=== PATIENT | female | born 1980 | race Caucasian/White ===

== ENCOUNTER → 2023-01-10 09:20 | Outpatient (BNVA) | payer MEDICAID, SELFPAY | PROVIDERS: Visit Provider Physician Assistant ==

== ENCOUNTER 2023-01-18 09:24 | Outpatient (REF) | payer MEDICAID, SELFPAY ==
[2023-01-20 12:16] LABS: H Pylori Breath Test Negative (Negative)
== END 2023-01-18 09:25 | disposition home or self-care (01) ==
LOC: HO.LNP 09:24
PROVIDERS: Visit Provider Physician Assistant Surgical
DX: E66.01 Morbid (severe) obesity due to excess calories (principal); Z68.41 Body mass index [BMI] 40.0-44.9, adult; Z11.0 Encounter for screening for intestinal infectious diseases
CPT/HCPCS: 83013; 99202; 99211

== ENCOUNTER 2023-01-26 09:07 | Outpatient (REF) | payer MEDICAID, SELFPAY ==
--- NOTE | ~2023-01-26 | XR_ITS ---
EXAMINATION: XR CHEST CLINICAL INFORMATION: Bariatric service evaluation, E66.01 COMPARISON: None available. TECHNIQUE: 2 views of the chest were obtained. FINDINGS: Lungs clear. Vascularity normal. No airspace consolidation or groundglass opacity or effusion. Heart size normal. The hilar and mediastinal contours and visualized bony structures are unremarkable. XR/XR chest 2V IMPRESSION: Unremarkable examination.
--- NOTE | 2023-01-26 09:12 | ECG_ITS ---
Test Reason : E66.01 Blood Pressure : / mmHG Vent. Rate : 079 BPM Atrial Rate : 079 BPM P-R Int : 140 ms QRS Dur : 084 ms QT Int : 394 ms P-R-T Axes : 049 043 027 degrees QTc Int : 451 ms Normal sinus rhythm Normal ECG No previous ECGs available Referred By: Lynda Leong Electronically Signed By:ION SOTOMAYOR
[2023-01-26 09:23] LABS: MANUAL DIFF FLAG NO
[2023-01-26 09:58] LABS: Basophils Percent Auto 0.6 % (0-2); Eosinophils Absolute Auto 0.1 X10*3/uL (0.0-0.4); Eosinophils Percent Auto 1.8 % (0-4); Hematocrit 41.4 % (37.0-47.0); Hemoglobin 13.6 g/dl (12.0-16.0); Imm Gran Abs Auto 0.01 X10*3/uL (0.00-0.03); Imm Gran Pct Auto 0.1 % (0.0-0.4); Lymphocytes Absolute Auto 2.4 X10*3/uL (1.2-4.9); Lymphocytes Percent Auto 35.3 % (20-40); Mean Corpuscular HGB Conc 32.9 g/dl (31.0-35.0); Mean Corpuscular Hemoglobin 28.9 pg (27.0-33.0); Mean Corpuscular Volume 87.9 fL (80.0-98.0); Mean Platelet Volume 11.2 fL (9.4-12.3); Monocytes Absolute Auto 0.5 X10*3/uL (0.1-1.2); Monocytes Percent Auto 7.3 % (2-11); Neutrophils Absolute Auto 3.7 x10*3/uL (2.0-8.3); Neutrophils Percent Auto 54.9 % (45-73); Platelet Count 339 X10*3/uL (160-400); Red Blood Count 4.71 X10*6/uL (4.20-5.50); Red Cell Distribution Width 12.8 % (11.0-16.0); White Blood Count 6.8 X10*3/uL (4.8-10.8)
[2023-01-26 10:22] LABS: Estimated Average Glucose 97 mg/dL
[2023-01-26 10:49] LABS: Alanine Aminotransferase 25 U/L (0-31); Albumin Level 4.5 g/dL (3.5-5.0); Alkaline Phosphatase 83 U/L (39-117); Anion Gap 15 (12-20); Aspartate Amino Transferase 19 U/L (5-31); Bilirubin Total 0.6 mg/dL (0.0-1.0); Blood Urea Nitrogen 19 mg/dL (9-16); C Reactive Protein 0.93 mg/dL (< or = 0.50); Calcium 9.5 mg/dL (8.4-10.2); Carbon Dioxide 26 mmol/L (22-29); Chloride 102 mmol/L (96-108); Cholesterol 177 mg/dL; Estimated Glomerular Filt Rate > 60; Glucose Random 86 mg/dL (60-115); HDL Cholesterol 38 mg/dL; Iron 68 mcg/dL (30-160); LDL Cholesterol Calculated 121 mg/dl; Percent Iron Saturation 28 % (15-50); Potassium 4.3 mmol/L (3.3-5.1); Sodium 139 mmol/L (135-145); Total Iron Binding Capacity 243 mcg/dL (228-428); Total Protein 7.6 g/dL (6.5-8.0); Triglycerides 90 mg/dL; Unsaturated Iron Binding 175 ug/dL
[2023-01-26 11:22] LABS: Ferritin 168 ng/mL (10-250); Folate 14.3 ng/mL (> or = 4.0); Insulin 8 uU/mL (2-29); Vitamin B12 650 pg/mL (200-900); Vitamin D 25-OH Total 31.7 ng/mL (>30)
[2023-01-30 16:54] LABS: PTHI 20 pg/mL (16-77)
[2023-02-01 02:04] LABS: Zinc 107 mcg/dL (60-130)
[2023-02-02 10:19] LABS: Vitamin A 35 mcg/dL (38-98)
[2023-02-02 16:24] LABS: Vitamin B1 <6 nmol/L (8-30)
== END 2023-01-26 09:08 | disposition home or self-care (01) ==
LOC: HO.LAB 09:07
PROVIDERS: Visit Provider Physician Assistant Surgical
DX: E66.01 Morbid (severe) obesity due to excess calories (principal)
CPT/HCPCS: 36415; 71046; 80053; 80061; 82306; 82607; 82728; 82746; 83036; 83525; 83540; 83970; 84425; 84443; 84590; 84630; 85025; 86140; 93005

== ENCOUNTER → 2023-01-30 14:11 | Outpatient (BNVA) | payer OTHER, MEDICAID, SELFPAY | PROVIDERS: Visit Provider Counselor Mental Health ==

== ENCOUNTER → 2023-02-07 13:57 | Outpatient (BNVA) | payer OTHER, MEDICAID, SELFPAY | PROVIDERS: PCP Physician Assistant; Visit Provider Dietitian, Registered | DX: E66.01 Morbid (severe) obesity due to excess calories (principal); Z68.42 Body mass index [BMI] 45.0-49.9, adult; Z71.3 Dietary counseling and surveillance | CPT/HCPCS: 97802 ==

== ENCOUNTER → 2023-02-17 12:43 | Outpatient (BNVA) | payer OTHER, SELFPAY | PROVIDERS: PCP Physician Assistant; Visit Provider Physician Assistant Surgical ==

== ENCOUNTER → 2023-02-20 14:30 | Outpatient (BNVA) | payer OTHER, SELFPAY | PROVIDERS: PCP Physician Assistant; Visit Provider Counselor Mental Health ==

== ENCOUNTER → 2023-03-07 13:30 | Outpatient (BNVA) | payer OTHER, SELFPAY | PROVIDERS: PCP Physician Assistant; Visit Provider Surgery ==

== ENCOUNTER 2023-03-13 08:50 | Outpatient (REF) | payer OTHER, SELFPAY ==
--- NOTE | ~2023-03-13 | FL_ITS ---
EXAMINATION: XR FLUOROSCOPY UPPER GI WITH AIR CLINICAL INFORMATION: Obesity. COMPARISON: None available. TECHNIQUE: Upper GI was performed using thin and thick barium and effervescent granules. AP and ZABALA imaging was also performed. FINDINGS: Esophageal motility is normal. There is a small sliding-type hiatal hernia. There is gastroesophageal reflux. The stomach is normal-appearing. No fold thickening, mass, ulcer or stricture is seen. There is delayed emptying into the stomach into the duodenum. The duodenum is difficult to distend and slightly irregular in shape. Appearance is questionable for scarring/changes from old ulcer disease. Remainder of the visualized proximal small bowel is normal. FLUOROSCOPY TIME: 0.3 min. DOSE AREA PRODUCT: 3.914 Gy-cm2. TOTAL DOSE: 13.318 mGy. FLUOROSCOPIC IMAGES: 16 saved fluoroscopic images and 3 delayed 10-minute overhead images. FL/FL upper GI w air IMPRESSION: Small sliding-type hiatal hernia and mild gastroesophageal reflux. Normal-appearing stomach. Slight deformity and underdistention of the duodenal bulb questionable for changes from old ulcer disease/scarring.
--- NOTE | ~2023-03-13 | US_ITS ---
EXAMINATION: US COMPLETE ABDOMEN WITH LIVER ELASTOGRAPHY CLINICAL INFORMATION: Morbid obesity. COMPARISON: None available. TECHNIQUE: Real-time imaging of the abdominal viscera. Noninvasive ultrasound liver fibrosis assessment is performed using Charan ElastPQ point quantification shear wave elastography (2D-SWE) with a C5-2 MHz transducer. Multiple elastography samples are obtained. FINDINGS: PANCREAS: Limited. The visualized pancreatic head and body are normal in appearance. The remainder of the pancreas is obscured from visualization by the overlying bowel gas. ABDOMINAL AORTA: The proximal, middle, and distal aortic segments are normal in caliber. INFERIOR VENA CAVA: Visualized portions are normal. LIVER: Normal. The liver demonstrates normal size, contour and echogenicity. Adjacent to the ligamentum teres, a 2.7 x 1.5 x 1.7 cm hyperechoic, circumscribed mass is seen. This shows no associated color Doppler flow. No biliary duct dilatation. The right lobe measures 13.9 cm in length. The left lobe measures 8.6 cm in length. Portal flow is towards the liver (hepatopetal). Shear wave liver elastography median stiffness is 1.55 m/s (reference: normal median stiffness is 1.3 m/s or less). IQR/median stiffness to assess sampling precision is 0.10 (reference: good quality data set is IQR/median stiffness of 0.15 or less). GALLBLADDER: Normal. The gallbladder is physiologically distended without evidence of stones, sludge, polyps, wall thickening or pericholecystic fluid. COMMON BILE DUCT: Normal in caliber measuring 0.2 cm in diameter. RIGHT KIDNEY: Normal. No hydronephrosis. No renal calculi or focal parenchymal lesions. The kidney measures 9.4 cm in maximum dimension. LEFT KIDNEY: Normal. No hydronephrosis. No renal calculi or focal parenchymal lesions. The kidney measures 10.3 cm in maximum dimension. SPLEEN: Normal. The spleen measures 10.7 cm in maximum dimension. FREE FLUID: None. US/US abdomen comp w elastography IMPRESSION: 1. A 2.7 cm in maximal diameter hyperechoic, circumscribed hepatic mass is seen, situated adjacent to the ligamentum teres. This has ultrasound features characteristic for a benign hemangioma. If of continued clinical concern (i.e., history of hepatocellular disease or known malignancy), this can be further evaluated with dynamic CT or MRI. 2. Liver elastography: In the absence of other known clinical signs, measurements rule out compensated advanced chronic liver disease. If there are known clinical signs, further testing may be needed for confirmation. REFERENCE: Society of Radiologists in Ultrasound Liver Stiffness Thresholds (2020): LIVER STIFFNESS THRESHOLDS: *Liver Stiffness equal or less than 1.3 m/s: High probability of being normal. *Liver Stiffness less than 1.7 m/s: In the absence of other known clinical signs, rules out compensated advanced chronic liver disease. *Liver Stiffness 1.7-2.1 m/s: Suggestive of compensated advanced chronic liver disease but need further test for confirmation. *Liver Stiffness over 2.1 m/s: Rules in compensated advanced chronic liver disease. *Liver Stiffness over 2.4 m/s: Suggestive of clinically significant portal hypertension. QUALITY OF DATA SET: *IQR/Median value equal or less than 0.15 implies a quality data set. *IQR/Median value over 0.15 implies a poor quality data set. SIGNIFICANT CHANGE FROM PRIOR EXAM: Significant change if liver stiffness measurement is 10% or greater from prior exam. OTHER CONSIDERATIONS: The stage of liver fibrosis may be overestimated in the setting of acute hepatitis, liver inflammation, elevated liver function tests, hepatic vascular congestion, obstructive cholestasis, non-fasting state, and infiltrative diseases such as amyloidosis and lymphoma. In some patients with NAFLD, the liver stiffness thresholds for compensated advanced chronic liver disease may be lower. In causes other than viral hepatitis and NAFLD, liver stiffness thresholds are not well established.
== END 2023-03-13 08:51 | disposition home or self-care (01) ==
LOC: HO.US 08:50
PROVIDERS: PCP Physician Assistant; Visit Provider Physician Assistant Surgical
DX: E66.01 Morbid (severe) obesity due to excess calories (principal)
CPT/HCPCS: 74246; 76705; 76981

== ENCOUNTER → 2023-03-21 09:00 | Outpatient (BNVA) | payer OTHER, SELFPAY | PROVIDERS: PCP Physician Assistant; Visit Provider Physician Assistant Surgical ==

== ENCOUNTER → 2023-03-24 09:00 | Outpatient (BNVA) | payer OTHER, SELFPAY | PROVIDERS: PCP Physician Assistant; Visit Provider Surgery ==

== ENCOUNTER → 2023-03-27 13:33 | Outpatient (BNVA) | payer OTHER, SELFPAY | PROVIDERS: PCP Physician Assistant; Visit Provider Surgery | DX: E66.01 Morbid (severe) obesity due to excess calories (principal); E66.9 Obesity, unspecified; F90.9 Attention-deficit hyperactivity disorder, unspecified type; E51.9 Thiamine deficiency, unspecified; E50.9 Vitamin A deficiency, unspecified; R16.0 Hepatomegaly, not elsewhere classified ==

== ENCOUNTER 2023-04-06 06:24 | Day surgery (SDC) | payer OTHER, SELFPAY ==
[2023-04-03 13:39] VITALS: BMI 31.0
--- NOTE | 2023-04-05 09:27 | HO.ANESPROP2 ---
HPI - Anesthesia Eval Consult details Narrative: 43yo F for Upper Endoscopy PMFSH Active Problems Active Problems: All Active Problems (Updated 04/03/23 @ 13:38 by Jody Diaz RN) ADHD (Acute) Morbid obesity (Acute) Obesity (Acute) Vitamin B1 deficiency (Acute) Vitamin A deficiency (Acute) Liver mass (Acute) Hiatal hernia (Acute) Abnormal upper gastrointestinal barium series (Acute) Past Medical History Medical History ADHD Family History Family History Mother Hypertension Sister Diabetes Father No problems noted. Daughter ADHD Son ADHD Surgical History Surgical History Hx of section Social History Social History Alcohol intake: never Patient Tobacco Use Status: Never used Tobacco Meds Allergies Allergy/AdvReac Type Severity Reaction Status Date / Time Penicillins [PENICILLINS] Allergy Unknown BRUISES Verified 04/12/23 13:05 Home Medications Medication Instructions Recorded Confirmed Last Taken Type lisdexamfetamine 40 mg capsule 40 mg PO DAILY 01/10/23 04/12/23 Unknown History (Wilson) Exam Exam Date and Time: April 05, 2023 09 Height,Weight and Vital Signs: Height 5 ft 8 in Weight 92.533 kg Pertinent Lab Results Pertinent Lab Results: Laboratory Tests 01/26/23 01/26/23 09:21 09:21 WBC 6.8 Hgb 13.6 Hct 41.4 Plt Count 339 Sodium 139 Potassium 4.3 Chloride 102 Carbon Dioxide 26 BUN 19 H Creatinine 0.85 Narrative Narrative: EKG 01/2023 Vent. Rate : 079 BPM ? ? Atrial Rate : 079 BPM ?? P-R Int : 140 ms? QRS Dur : 084 ms ? ? QT Int : 394 ms ? ? ? P-R-T Axes : 049 043 027 degrees ?? QTc Int : 451 ms ? Normal sinus rhythm Normal ECG No previous ECGs available Assessment and Plan Assessment Anesthesia Assessment: Chart Reviewed
--- NOTE | 2023-04-05 15:51 | MHC.SHP ---
Pre-Procedural Eval Section A Date of Service: 04/05/23 The patient is an INPATIENT: No The History & Physical has been completed within 30 days and I have reviewed it.: Yes Section B Chief Complaint: Morbid (severe) obesity due to excess calories Allergies: Allergies Allergy/AdvReac Type Severity Reaction Status Date / Time Penicillins [PENICILLINS] Allergy Unknown BRUISES Verified 03/27/23 13:38 Plan I have reviewed the history and physical and performed a pertinent physical examination on my patient. No changes have occurred unless specified. Time Spent With Patient Time: Total time managing care of this patient today ____ minutes.
[2023-04-06 06:45] VITALS: BP 125/66; PULSE 71; RESP 16; TEMP 36.3; O2SAT 99
[2023-04-06 06:46] LABS: UPreg QC Valid YES; Urine Pregnancy NEGATIVE (NEGATIVE)
[2023-04-06] MEDS: Lactated Ringers 1,000 ML 100 ML IVCONT (06:56)
--- NOTE | 2023-04-06 07:48 | P.CONAN_ITS ---
[facility] Active Problems Active Problems: All Active Problems (Updated 04/03/23 @ 13:38 by Jody Diaz RN) ADHD (Acute) Morbid obesity (Acute) Obesity (Acute) Vitamin B1 deficiency (Acute) Vitamin A deficiency (Acute) Liver mass (Acute) Hiatal hernia (Acute) Abnormal upper gastrointestinal barium series (Acute) Past Medical History Medical History ADHD Functional capacity: independent ambulation Family History Family History Mother Hypertension Sister Diabetes Father No problems noted. Daughter ADHD Son ADHD Surgical History Surgical History Hx of section History of Problems with Anesthesia: No Social History Social History Alcohol intake: never Patient Tobacco Use Status: Never used Tobacco Use of substances other than those prescribed or required for medical reasons: No Are you DNR?: No Advance Directives: No Advance Directives Information Provided: Yes Patient : No (has IUD) Meds Allergies Allergy/AdvReac Type Severity Reaction Status Date / Time Penicillins [PENICILLINS] Allergy Unknown BRUISES Verified 03/27/23 13:38 Active Medications: Current Medications Lactated Ringer's (Lr) 1,000 mls @ 100 mls/hr IVCONT .Q10H NOEMÍ Last Admin: 04/06/23 06:56 Dose: 100 mls/hr Home Medications Medication Instructions Recorded Confirmed Last Taken Type lisdexamfetamine 40 mg capsule 40 mg PO DAILY 01/10/23 04/03/23 Unknown History (Wilson) Exam Exam Date and Time: April 06, 2023 0748 Height,Weight and Vital Signs: Height 5 ft 8 in Weight 92.533 kg Last Vital Signs Temp 97.4 F 04/06/23 06:45 Pulse 71 04/06/23 06:45 Resp 16 04/06/23 06:45 BP 125/66 04/06/23 06:45 Pulse Ox 99 04/06/23 06:45 O2 Del Method Room Air 04/06/23 06:45 Pertinent Lab Results Pertinent Lab Results: Laboratory Tests 04/06/23 06:30 Urine Test NEGATIVE Airway Mallampati Class: III TM Dist: >3cm Neck ROM: Full Heart: RRR Lungs: CTA Assessment and Plan Assessment Anesthesia Assessment: Anesthesia Plan Discussed and Chart Reviewed Final Anesthetic Review History of Problems with Anesthesia: No NPO: Yes ASA Class: II Final Preanesthetic Review: Meds/Allgs Chart Reviewed, Consent Obtained/Reviewed and Anes Risks/Benef Reviewed Patient Risk: Low Procedure Risk: Low Anesthetic Plan Anesthetic Plan: MAC: Disposition: Standard PACU
[2023-04-06 07:58] VITALS: BP 91/37; PULSE 74; RESP 16; TEMP 36.4; O2SAT 97
--- NOTE | 2023-04-06 08:03 | W.PM.OPN ---
Operative Note Operative Note Date of Service: 04/06/23 Narrative: Preop diagnosis: [Delayed gastric emptying/GOO on upper GI, small hiatal hernia on UGI] Postop diagnosis: [Possible gastritis, duodenal bulb inflammation path pending; GERD, no obvious HH] Procedure: [EGD with biopsies] Surgeon: Tobin Prabhakar MD Assist: [] Anesthesia: [general] Estimated blood loss: [3cc] Specimen: [1) Duodenal bulb; 2) gastric antrum; 3) GE Jxn at 37cm] Intraoperative findings: [GERD with possible short-segment Brown's under 1 cm; mild antral inflammation; duodenal inflammation but no scarring or masses to explain upper GI findings] Indications: [The patient is a 43-year-old woman with a lifelong metz with obesity. She is interested in a laparoscopic sleeve gastrectomy for surgical weight loss. In her workup, she underwent an upper GI that demonstrated a small hiatal hernia and delayed gastric emptying due to possible scarring of the duodenal bulb. Given these findings, upper endoscopy was recommended and the inherent risks of aspiration, bleeding, perforation, no change in management, possible need for blood transfusion and missed pathology reviewed with the patient via foreign language teacher. She seemed understand her options and wanted to proceed.] Procedure: [The patient was placed in left lateral decubitus position. An appropriate time-out confirming the procedure and patient was performed. Following successful administration of deep MAC/general anesthesia by the Department of Anesthesia, the Olympus 190 gastroscope was inserted per os into the esophagus under direct vision. The scope is then advanced into the stomach were clear secretions were encountered and aspirated. The stomach was then inflated and the stomach zacarias including anterior, posterior, lesser curve fundus and antrum all exam. The scope was then advanced to the 2nd portion of the duodenum. Biopsy sites were assessed for hemostasis which was good. The duodenal bulb was widely patent with no evidence of obvious cicatrix or scarring. Second portion of the duodenum appeared grossly normal. Biopsies: Of the duodenal bulb, gastric antrum and lower esophagus/GERD at 37 cm were obtained The scope was used to aspirate gas from the stomach and withdrawn from the patient. GE junction is noted to be at 37cm from the incisor and GERD with an irregular Z-line and possible short-segment Brown's under 1 cm was noted. No obvious hiatal hernia could be it demonstrated, likely due to sedation. Gross morphology of the irregular Z-line is consistent with GERD but no ulcerations were demonstrated. Hiatal hernia was not appreciated while the patient was deeply sedated.. Esophageal morphology was grossly normal. The patient tolerated the procedure well and was sent to the recovery area in stable condition. ]
[2023-04-06 08:13] VITALS: BP 123/77; PULSE 76; RESP 16; TEMP 36.4; O2SAT 98
== END 2023-04-06 08:52 | disposition home or self-care (01) ==
LOC: HO.SSS 06:24
PROVIDERS: Nurse Practitioner; PCP Physician Assistant; Visit Provider Surgery
PROC: 0DJ08ZZ Inspection of Upper Intestinal Tract, Via Natural or Artificial Opening Endoscopic (ICD-10-PCS; CPT 43235; principal; 2023-04-06 07:30)
DX: K30 Functional dyspepsia (principal); K21.9 Gastro-esophageal reflux disease without esophagitis; E66.01 Morbid (severe) obesity due to excess calories; E51.9 Thiamine deficiency, unspecified; E50.9 Vitamin A deficiency, unspecified; R16.0 Hepatomegaly, not elsewhere classified; Z88.0 Allergy status to penicillin
CPT/HCPCS: 43239; 81025; 88305; 88342

== ENCOUNTER → 2023-04-12 12:47 | Outpatient (BNVA) | payer OTHER, SELFPAY | PROVIDERS: PCP Physician Assistant; Visit Provider Surgery ==